=== PATIENT | female | born 1990 | race African-American/Black ===

== ENCOUNTER 2020-07-01 15:42 | Emergency (ER) | payer OTHER ==
[~2020-07-01] VITALS: Ht 165.1 cm; Wt 65.9 kg
[2020-07-01] MEDS ORDERED: IV NORMAL SALINE 1000ML BAG 1,000 ML IV ONE (16:15)
[2020-07-01] MEDS ORDERED: fentaNYL PF VIAL 100 MCG/2 ML VIAL IV ONE (16:15)
[2020-07-01 16:34] LABS: BASO # 0.1 x10^3/uL (0.0-0.2); BASO % 2 % (0-3); EOS # 0.1 x10^3/uL (0.0-0.7); EOS % 2 % (0-3); HEMATOCRIT 39.9 % (36.0-47.0); HEMOGLOBIN 12.8 g/dL (12.0-15.5); LYMPH % 41 % (24-48); MEAN CORPUSCULAR HEMOGLOBIN 26 pg (25-35); MEAN CORPUSCULAR HGB CONC 32 g/dL (31-37); MEAN CORPUSCULAR VOLUME 82 fL (79-100); MONO # 0.4 x10^3/uL (0.0-1.1); MONO % 8 % (0-9); NEUT # 2.3 x10^3/uL (1.8-7.7); NEUT % 48 % (31-73); PLATELET COUNT 223 x10^3/uL (140-400); RED BLOOD COUNT 4.85 x10^6/uL (3.50-5.40); RED CELL DISTRIBUTION WIDTH 13.9 % (11.5-14.5); WHITE BLOOD COUNT 4.8 x10^3/uL (4.0-11.0)
[2020-07-01 16:50] LABS: PREG TEST PT QUAL NEGATIVE (NEG)
[2020-07-01 16:55] LABS: CALCIUM 8.6 mg/dL (8.5-10.1); CREATININE 0.9 mg/dL (0.6-1.0); GFR 90.2; POTASSIUM 3.9 mmol/L (3.5-5.1)
[2020-07-01] MEDS ORDERED: IOHEXOL 300 MG/ML 100ML VIAL. IV ONE (17:00)
[2020-07-01 17:01] LABS: ALBUMIN 3.7 g/dL (3.4-5.0); ALBUMIN/GLOBULIN RATIO 1.1 (1.0-1.7); MAGNESIUM 1.8 mg/dL (1.8-2.4); TOTAL BILIRUBIN 0.2 mg/dL (0.2-1.0); TOTAL PROTEIN 7.1 g/dL (6.4-8.2)
[2020-07-01] MEDS ORDERED: CONTRAST GIVEN. MC PRN (17:15)
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
[2020-07-01] MEDS ORDERED: TRAM50TA PO (19:52)
[2020-07-01 21:03] VITALS: BP 109/59
== END 2020-07-01 21:03 | disposition home or self-care (01) ==
LOC: ER 15:42
DX: S52.502A Unspecified fracture of the lower end of left radius, initial encounter for closed fracture (principal); M25.562 Pain in left knee; R07.89 Other chest pain; V53.5XXA Driver of pick-up truck or van injured in collision with car, pick-up truck or van in traffic accident, initial encounter; Y93.89 Activity, other specified; Y92.410 Unspecified street and highway as the place of occurrence of the external cause; Y99.8 Other external cause status
CPT/HCPCS: 29125; 36415; 70450; 71260; 72125; 73120; 73562; 74177; 80053; 83735; 84702; 84703; 85025; 96361; 96374; 99285; J3010; J7030; Q9967

== ENCOUNTER 2021-05-08 01:33 | Emergency (ER) | payer SELFPAY ==
[~2021-05-08] VITALS: Ht 157.5 cm; Wt 65.0 kg
[~2021-05-08 01:33] MED LIST: TRAM50TA PO
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
[2021-05-08] MEDS ORDERED: IBUPROFEN 200 MG TABLET. PO ONE (02:30)
[2021-05-08 02:40] VITALS: BP 103/67
== END 2021-05-08 03:00 | disposition home or self-care (01) ==
LOC: ER 01:33
DX: K08.89 Other specified disorders of teeth and supporting structures (principal); M54.2 Cervicalgia; G89.29 Other chronic pain
CPT/HCPCS: 99282; 99283